=== PATIENT | male | born 1980 | race African-American/Black ===

== ENCOUNTER 2023-03-25 11:20 | Emergency (ER) | payer BC, SELFPAY ==
[2023-03-25] VITALS (8 sets, daily range): BP systolic 186–210; BP diastolic 88–100; PULSE 75–110; RESP 16–24; TEMP 37; O2SAT 94–100; BMI 33.5
--- NOTE | 2023-03-25 | XR_ITS ---
The [address] [address] Patient Name: MEL OSORIO MRN: [id number] date: 1980 Sex: M Assigned Patient Location: ER Current Patient Location: ED.MAIN Accession/Order Number: [id number] Exam Date: 03/25/2023 12:30 Report Date: 03/25/2023 13:58 At the request of: RAY KING Procedure: XR shoulder LT 1V EXAM: XR shoulder LT 1V HISTORY: POST REDUCTION COMPARISON: Same day TECHNIQUE: 1 view of the left shoulder. FINDINGS and impression: No significant interval change compared to the prior study. The humeral head is noted anteromedial compared to the glenoid. 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 There is no acute fracture. Electronically authenticated by: BEBA REDDY Date: 03/25/2023 13:58
--- NOTE | 2023-03-25 11:31 | XR_ITS ---
The [address] [address] Patient Name: MEL OSORIO MRN: [id number] date: 1980 Sex: M Assigned Patient Location: ED.MAIN Current Patient Location: ER Accession/Order Number: [id number] Exam Date: 03/25/2023 11:40 Report Date: 03/25/2023 12:33 At the request of: RAY KING Procedure: XR shoulder LT 1V EXAM: XR shoulder LT 1V CLINICAL HISTORY: Pain post injury. COMPARISON: None TECHNIQUE: X-ray FINDINGS: There is apparent anterior inferior dislocation of the left shoulder. No definite fracture is identifiable on this exam. There are degenerative changes. Follow-up is recommended. XR/XR shoulder LT 1V IMPRESSION: Apparent anterior inferior dislocation of the left shoulder. Electronically authenticated by: ARIANA LANE Date: 03/25/2023 12:33
[2023-03-25] MEDS: KETOROLAC TROMETHAMINE 30 MG/ML VIAL 15 MG IVP ×2 (11:46→14:28)
--- NOTE | 2023-03-25 12:17 | PC.NURSE ---
resp at bedside
[2023-03-25] MEDS: ETOMIDATE 20 MG/10 ML VIAL IVP (12:37)
[2023-03-25] MEDS: MORPHINE SULFATE 2 MG/ML SYRINGE IV (12:37)
[2023-03-25] MEDS: 0.9 % SODIUM CHLORIDE 250 ML IV.SOLN IV (12:38)
--- NOTE | 2023-03-25 13:15 | ED.UPPEXIN1 ---
HPI - Extremity Injury (Upper) General Chief Complaint: Extremity Injury, Upper Stated Complaint: UPPER EXTREMITY INJURY L SHOULDER Time Seen by Provider: 03/25/23 11:31 Source: patient Mode of arrival: walk-in History of Present Illness HPI narrative: The patient is coming to us with a right upper extremity pain mostly the left one that he started having after he was lifting 230 pounds and also that he feels like his shoulder is dislocated and went out of place, the patient is presenting to us in distress because he is in pain is giving the pain 10 out of 10 and its only in the left shoulder there is no other complaints he is not able to abduct his shoulder Related Data Home Medications Medication Instructions Recorded Confirmed lisinopril 40 mg tablet 40 mg PO DAILY 03/25/23 03/25/23 Allergies Allergy/AdvReac Type Severity Reaction Status Date / Time No Known Drug Allergies Allergy Verified 03/25/23 11:27 Review of Systems ROS Status of ROS 10 or more systems reviewed and unremarkable except as noted in history and below Exam Narrative Exam Narrative: Nurses notes and vital signs reviewed and patient is not hypoxic. General: Well-appearing and in no apparent distress. Skin: Warm, dry, no pallor noted. No rash. Head: Normocephalic, atraumatic. Neck: Supple, non-tender. Eye: Pupils are equal, round and EOMI. No scleral icterus. Ears, Nose, Mouth, and Throat: TM are clear, no nasal mucosal hypertrophy. Oral mucosa is moist, no posterior oropharynx erythema, uvula is mid-line Cardiovascular: Regular Rate and Rhythm without murmur, gallop or rub. Respiratory: No accessory muscle use or respiratory distress. Lungs are clear to auscultation, no wheezing, rales or rhonchi Chest Wall: no tenderness Back: No midline thoracic or lumbar vertebral tenderness. No CVA tenderness Musculoskeletal: The patient the left shoulder is abducted the patient is not able to abduct the due to pain he does have a good radial pulse and no vascular injury detected in the hand there is no weakness or numbness or tingling GI: Abdomen is soft, non-distended. Normal bowel sounds. No masses appreciated. No tenderness to palpation. No rebound, guarding, or rigidity noted. Neurological: A&O x4. No cranial nerve dysfunction observed. No truncal ataxia. Moves all extremities. Sensation intact. Psychiatric: Cooperative and interactive. Normal mood and affect. Constitutional Vital Signs, click to edit/add: Last Vital Signs Temp 98.6 F 03/25/23 11:29 Pulse 87 03/25/23 12:36 Resp 18 03/25/23 12:36 BP 210/100 H 03/25/23 12:43 Pulse Ox 100 03/25/23 12:36 O2 Flow Rate 2 03/25/23 12:36 Course Vital Signs Vital signs: Vital Signs Temperature 98.6 F 03/25/23 11:29 Pulse Rate 110 H 03/25/23 11:29 Respiratory Rate 22 03/25/23 11:29 Blood Pressure 186/96 H 03/25/23 11:29 Temperature 98.6 F 03/25/23 11:29 Pulse Rate 87 03/25/23 12:36 Respiratory Rate 18 03/25/23 12:36 Blood Pressure 210/100 H 03/25/23 12:43 Pulse Oximetry 100 03/25/23 12:36 Oxygen Delivery Flow Rate 2 03/25/23 12:36 MDM - Extremity Injury (Upper) MDM Narrative Medical decision making narrative: Patient presenting with an obvious left shoulder anterior dislocation and x-ray confirmed The patient was very cooperative and initially we tried manipulation to put the shoulder in place without sedation only after providing with Toradol. But due to the fact that the patient muscular it was not successful The patient also had conscious sedation procedure He did had a 20 mg of etomidate provided to him after which manipulation to put the left shoulder in place was not successful and it was noted also that the patient had spasm and twitching with etomidate and agitation. After that the patient case was discussed with the orthopedic doctor Dr. Krause and [facility] and the right now the patient will be transferred to the emergency room and [facility] Dr. Abernathy accepting him The patient will be provided with pain medication until he is transferred Critical Care Time Critical Care Time Critical Care Time: No Discharge Plan Discharge Chief Complaint: Extremity Injury, Upper Clinical Impression: Anterior dislocation of left shoulder Qualifiers: Encounter type: initial encounter Qualified Code(s): S43.015A - Anterior dislocation of left humerus, initial encounter Patient Disposition: [facility] Time of Disposition Decision: 13:20 Discharge location: [facility]
[2023-03-25] MEDS: MORPHINE SULFATE 4 MG/ML VIAL IV ×2 (13:20→14:28)
== END 2023-03-25 14:42 | disposition short-term general hospital (02) ==
PROVIDERS: Emergency Provider Emergency Medicine; PCP Family Medicine
DX: S43.015A Anterior dislocation of left humerus, initial encounter (principal); X50.0XXA Overexertion from strenuous movement or load, initial encounter; Y93.B3 Activity, free weights
CPT/HCPCS: 23650; 73020; 80053; 80320; 96374; 96375; 96376; 99152; 99285

== ENCOUNTER 2023-07-05 16:17 | Outpatient (RCR) | payer BC, SELFPAY | END 2023-08-23 16:54 | disposition home or self-care (01) | LOC: PT 16:17 | PROVIDERS: PCP Family Medicine | DX: S43.005D Unspecified dislocation of left shoulder joint, subsequent encounter (principal); S42.292D Other displaced fracture of upper end of left humerus, subsequent encounter for fracture with routine healing; S43.492D Other sprain of left shoulder joint, subsequent encounter | CPT/HCPCS: 97110; 97140; 97162 ==